=== PATIENT | male | born 1985 | race African-American/Black ===

== ENCOUNTER 2017-10-30 15:51 | Emergency (ER) | payer OTHER ==
[~2017-10-30] VITALS: Ht 177.8 cm; Wt 63.1 kg
[~2017-10-30 15:51] MED LIST: KEFLEX500 MG PO; MOTRIN600 MG PO; ULTRAM50 MG PO
[2017-10-30 17:06] VITALS: BP 116/72
== END 2017-10-30 17:09 | disposition home or self-care (01) ==
LOC: EME 15:51
PROC: 0HQGXZZ Repair Left Hand Skin, External Approach (ICD-10-PCS; principal; 2017-10-30)
DX: S61.211A Laceration without foreign body of left index finger without damage to nail, initial encounter (principal); W25.XXXA Contact with sharp glass, initial encounter; F17.200 Nicotine dependence, unspecified, uncomplicated
CPT/HCPCS: 99281; 99284